=== PATIENT | male | born 1995 | race Caucasian/White ===

== ENCOUNTER 2018-10-04 06:52 | Emergency (ER) | payer MEDICAID ==
[~2018-10-04] VITALS: Ht 167.6 cm; Wt 69.9 kg
--- NOTE | 2018-10-04 07:11 | Emergency Room Report ---
History of Present Illness General Chief Complaint: Male Urogenital Problems Source: Patient Present Illness HPI Patient presents with complaints of right testicular pain Reports that pain started 10:00 in the morning yesterday Initially the pain was not too significant however it did worsen throughout the day last night approximately midnight the pain worsened however he reports that they decided to sleep few hours in the morning time which is now as the pain persisted he presents to the ER Patient reports that when he was a child approximately 7 years old he had previous surgery for testicular torsion Patient reports increased nausea Also low-grade fever Denies any other trauma denies any discharge patient reports that he is sexually active with one partner Allergies: Coded Allergies: No Known Allergies (Unverified , 10/04/18) Patient History Past Medical History: see triage record Pertinent Family History: none Reviewed Nursing Documentation: PMH: Agreed; PSxH: Agreed Nursing Documentation-PMH Past Medical History: No History, Except For Review of Systems All Other Systems: negative except mentioned in HPI Physical Exam Vital Signs Date Time Temp Pulse Resp B/P (MAP) Pulse Ox O2 Delivery O2 Flow Rate FiO2 10/04/18 07:03 105 14 141/66 98 Room Air Sp02 EP Interpretation: reviewed, normal General Appearance: no apparent distress Head: normocephalic, atraumatic Eyes: bilateral eye PERRL, bilateral eye EOMI ENT: hearing grossly normal, normal pharynx, TMs + canals normal, uvula midline Neck: full range of motion, supple, no meningismus, no bony tend Respiratory: lungs clear, normal breath sounds, no rhonchi, no respiratory distress, no retraction, no accessory muscle use Cardiovascular #1: normal peripheral pulses, regular rate, rhythm, no edema, no gallop, no JVD, no murmur Gastrointestinal: normal bowel sounds, non tender, soft, no mass, no organomegaly, non-distended, no guarding, no hernia, no pulsatile mass, no rebound Genitourinary: other - Tender on palpation of the right testicle, testicle itself appears to be laying vertically appropriately, there is some response with cremasteric reflex, no other change in color Musculoskeletal: normal inspection Neurologic: oriented x3, responsive, hand meat salter III-XII nml as tested, motor strength/ tone normal, sensory intact Psychiatric: mood/affect normal Skin: normal color, no rash, warm/dry, palpation normal Lymphatic: normal inspection, no adenopathy Medical Decision Making Diagnostic Impression: Primary Impression: Testicular pain, right Additional Impressions: Acute epididymitis Colitis ER Course Patient's presentation concerning for acute torsion Ultrasound obtained emergently urology contacted After ultrasound finding there appears to be appropriate flow to the testicle There is a mild hydrocele not side and varicocele on the left side Patient's white blood cell count however was 15,000 He had reported some radiation to the lower part of the right abdomen Therefore CT was obtained for further evaluation Appendix was unremarkable There was some question of mild colitis Patient on repeat questioning reports some mild diarrhea Patient was covered for possible epididymitis, azithromycin and Rocephin discharged on doxycycline and requires close outpatient follow-up Labs Test 10/04/18 07:16 White Blood Count 15.7 K/UL (4.8-10.8) Red Blood Count 5.17 M/UL (4.70-6.10) Hemoglobin 16.5 G/DL (14.2-18.0) Hematocrit 49.0 % (42.0-52.0) Mean Corpuscular Volume 95 FL (80-99) Mean Corpuscular Hemoglobin 32.0 PG (27.0-31.0) Mean Corpuscular Hemoglobin Concent 33.7 G/DL (32.0-36.0) Red Cell Distribution Width 11.0 % (11.6-14.8) Platelet Count 206 K/UL (150-450) Mean Platelet Volume 7.2 FL (6.5-10.1) Neutrophils (%) (Auto) 84.7 % (45.0-75.0) Lymphocytes (%) (Auto) 8.1 % (20.0-45.0) Monocytes (%) (Auto) 6.6 % (1.0-10.0) Eosinophils (%) (Auto) 0.2 % (0.0-3.0) Basophils (%) (Auto) 0.4 % (0.0-2.0) Urine Color Pale yellow Urine Appearance Clear Urine pH 7 (4.5-8.0) Urine Specific [place] 1.015 (1.005-1.035) Urine Protein Negative (NEGATIVE) Urine Glucose (UA) Negative (NEGATIVE) Urine Ketones Negative (NEGATIVE) Urine Blood Negative (NEGATIVE) Urine Nitrite Negative (NEGATIVE) Urine Bilirubin Negative (NEGATIVE) Urine Urobilinogen Normal MG/DL (0.0-1.0) Urine Leukocyte Esterase 2+ (NEGATIVE) Urine RBC 0 /HPF (0 - 0) Urine WBC 2-4 /HPF (0 - 0) Urine Squamous Epithelial Cells None /LPF (NONE/OCC) Urine Bacteria Few /HPF (NONE) Sodium Level 140 MMOL/L (136-145) Potassium Level 3.5 MMOL/L (3.5-5.1) Chloride Level 102 MMOL/L (98-107) Carbon Dioxide Level 27 MMOL/L (21-32) Anion Gap 11 mmol/L (5-15) Blood Urea Nitrogen 10 mg/dL (7-18) Creatinine 1.0 MG/DL (0.55-1.30) Estimat Glomerular Filtration Rate > 60 mL/min (>60) Glucose Level 127 MG/DL (74-106) Calcium Level 9.4 MG/DL (8.5-10.1) CT/MRI/US Diagnostic Results CT/MRI/US Diagnostic Results : Impression testicular ultrasoundIMPRESSION: 1. 2 separate 2-3 mm simple-appearing cysts in the right epididymal head. 2. Small right hydrocele. 3. Possible left-sided varicocele. CT abdomen pelvisIMPRESSION: 1. Mild segmental wall thickening in the mid descending colon is most likely related to focal underdistention or peristalsis. Cannot completely exclude mild colitis, however there are no adjacent inflammatory changes. 2. Mild diffuse colonic fecal retention may suggest constipation. Last Vital Signs Date Time Temp Pulse Resp B/P (MAP) Pulse Ox O2 Delivery O2 Flow Rate FiO2 10/04/18 07:03 105 14 141/66 98 Room Air Status: improved Disposition: HOME, SELF-CARE Condition: Improved Scripts Doxycycline Monohydrate* (DOXYCYCLINE MONOHYDRATE*) 100 Mg Capsule 100 MG ORAL Q12H, #14 CAP 0 Refills Prov: Quentin Mendoza DO 10/04/18 [facility]: [facility]ERR[facility] (PCP) Additional Instructions: Patient is provided with the discharge instructions notified to follow up with primary doctor in the next 2-3 days otherwise return to the er with any worsening symptoms. Please note that this report is being documented using DRAGON technology. This can lead to erroneous entry secondary to incorrect interpretation by the dictating instrument. Quentin Mendoza DO Oct 04, 2018 07:11
[2018-10-04] MEDS: Ketorolac 30mg Inj IV ONE (07:22)
[2018-10-04 07:46] LABS: APPEARANCE,URINE CLEAR; BILIRUBIN, URINE NEGATIVE (NEGATIVE); COLOR,URINE PALE YELLOW; GLUCOSE, URINE (UA) NEGATIVE (NEGATIVE); KETONES,URINE NEGATIVE (NEGATIVE); LEUKOCYTE ESTERASE ,URINE 2+ (NEGATIVE); NITRITE,URINE NEGATIVE (NEGATIVE); PH,URINE 7 (4.5-8.0); PROTEIN,URINE NEGATIVE (NEGATIVE); UROBILINOGEN,URINE NORMAL MG/DL (0.0-1.0)
[2018-10-04 07:50] LABS: ANION GAP 11 mmol/L (5-15); BLOOD UREA NITROGEN 10 mg/dL (7-18); CALCIUM 9.4 MG/DL (8.5-10.1); CARBON DIOXIDE 27 MMOL/L (21-32); CHLORIDE 102 MMOL/L (98-107); POTASSIUM 3.5 MMOL/L (3.5-5.1); SODIUM 140 MMOL/L (136-145)
[2018-10-04 07:53] LABS: BASOPHILS % (AUTO) 0.4 % (0.0-2.0); EOSINOPHILS % (AUTO) 0.2 % (0.0-3.0); HEMOGLOBIN 16.5 G/DL (14.2-18.0); LYMPHOCYTES % (AUTO) 8.1 % (20.0-45.0); MEAN CORPUSCULAR VOLUME 95 FL (80-99); MONOCYTES % (AUTO) 6.6 % (1.0-10.0); NEUTROPHILS % (AUTO) 84.7 % (45.0-75.0); PLATELET COUNT 206 K/UL (150-450); RED BLOOD COUNT 5.17 M/UL (4.70-6.10); WHITE BLOOD COUNT 15.7 K/UL (4.8-10.8)
[2018-10-04] MEDS ORDERED: Isovue-300 100ml vial INJ PRN (08:15)
[2018-10-04 08:16] VITALS: BP 122/63
--- NOTE | 2018-10-04 08:36 | Diagnostic Imaging Report ---
EXAM: US Scrotum CLINICAL HISTORY: PAIN TECHNIQUE: Real-time ultrasound of the scrotum with color Doppler and image documentation. COMPARISON: No relevant prior studies available. FINDINGS: Right testicle: Right testicle measures 4.1 x 3.0 x 2.3 cm. Patent Doppler flow. No visible masses or microcalcifications. Left testicle: Left testicle measures 4.1 x 2.6 x 1.9 cm. Patent Doppler flow. No visible masses or microcalcifications. Epididymides: 2 separate 2-3 mm simple-appearing cysts in the right epididymal head. Scrotum: Small right hydrocele. Possible left-sided varicocele. IMPRESSION: 1. 2 separate 2-3 mm simple-appearing cysts in the right epididymal head. 2. Small right hydrocele. 3. Possible left-sided varicocele.
--- NOTE | 2018-10-04 08:56 | Diagnostic Imaging Report ---
EXAM: CT Abdomen and Pelvis With Intravenous Contrast CLINICAL HISTORY: PAIN TECHNIQUE: Axial computed tomography images of the abdomen and pelvis with intravenous contrast. CTDI is 9.72 mGy and DLP is 536 mGy-cm. One or more of the following dose reduction techniques were used: automated exposure control, adjustment of the mA and/or kV according to patient size, use of iterative reconstruction technique. COMPARISON: No relevant prior studies available. FINDINGS: Lung bases: Unremarkable. No mass. No consolidation. ABDOMEN: Liver: Unremarkable. No mass. Gallbladder and bile ducts: Unremarkable. No calcified stones. No ductal dilation. Pancreas: Unremarkable. No mass. No ductal dilation. Spleen: Unremarkable. No splenomegaly. Adrenals: Unremarkable. No mass. Kidneys and ureters: 6 mm cortical hypodensity in the right upper renal pole is too small to further characterize, likely a small simple cyst. The kidneys otherwise appear unremarkable. No hydronephrosis or hydroureter. Stomach and bowel: Mild segmental wall thickening in the mid descending colon is most likely related to focal underdistention or peristalsis. No adjacent inflammatory changes. Mild diffuse colonic fecal retention may suggest constipation. No abnormally distended loops of small bowel. GE junction and stomach appear unremarkable. PELVIS: Appendix: The appendix appears unremarkable. Bladder: Unremarkable. No mass. Reproductive: The prostate gland and seminal vesicles appear unremarkable. ABDOMEN and PELVIS: Intraperitoneal space: Unremarkable. No free air. No significant fluid collection. Bones/joints: Incidental note of a Schmorl's node along the superior endplate of S1. No visible fracture. No dislocation. Soft tissues: Unremarkable. Vasculature: Unremarkable. No abdominal aortic aneurysm. Lymph nodes: Unremarkable. No enlarged lymph nodes. IMPRESSION: 1. Mild segmental wall thickening in the mid descending colon is most likely related to focal underdistention or peristalsis. Cannot completely exclude mild colitis, however there are no adjacent inflammatory changes. 2. Mild diffuse colonic fecal retention may suggest constipation.
[2018-10-04] MEDS: cefTRIAXone 1 GM in NS 55 ML IVPB ONE (09:27)
[2018-10-04] MEDS ORDERED: DOXYCYCLINE MO100 MG ORAL (09:53)
[2018-10-04] MEDS: Azithromycin 250mg tab ORAL ONE (09:57)
[2018-10-04 10:04] VITALS: BP 110/59
== END 2018-10-04 10:09 | disposition home or self-care (01) ==
LOC: EMR 07:07
DX: N45.1 Epididymitis (principal); K52.9 Noninfective gastroenteritis and colitis, unspecified; N50.3 Cyst of epididymis; N43.3 Hydrocele, unspecified
CPT/HCPCS: 36415; 74177; 76870; 80048; 81003; 85025; 96361; 96365; 99284; J0696; Q0144; Q9967; J2405